=== PATIENT | male | born 1970 | race Hispanic/Latino ===

== ENCOUNTER 2019-01-01 21:11 | Emergency (ER) | payer BC ==
[2019-01-01] MEDS ORDERED: BENADRYL IV ONE (22:26)
[2019-01-01] MEDS ORDERED: REGLAN IV ONE (22:26)
--- NOTE | 2019-01-01 22:27 | Emergency Department Report ---
ED Headache HPI - General Chief Complaint: Abdominal Pain Stated Complaint: NAUSEA AND VOMITING Time Seen by Provider: 01/01/19 22:23 - History of Present Illness Initial Comments: 48-year-old male presents to the emergency room for headache neck pain and vomiting. Patient reports that his head no sleep since as he's been here at the hospital with his to induce labor. Patient does report a past medical history of migraines and cervical spine fusion C4 to C7. Patient reports change of vision. Denies any chest pain shortness of breathing or abdominal pain. Timing/Duration: 24 hours Quality: severe Recent Head Trauma: no recent headache/trauma Associated Symptoms: nausea/vomiting Allergies/Adverse Reactions: Allergies No Known Allergies Allergy (Unverified 01/01/19 22:09) Home Medications: Ambulatory Orders Ketorolac [Toradol] 10 mg PO Q6H PRN #20 tablet 01/02/19 Metoclopramide [Reglan] 10 mg PO TID #15 tab 01/02/19 diphenhydrAMINE [Benadryl CAP] 25 mg PO Q6HR PRN #15 capsule 01/02/19 ED Review of Systems ROS: Stated complaint: NAUSEA AND VOMITING Other details as noted in HPI Comment: All other systems reviewed and negative Constitutional: denies: chills, fever Eyes: vision change ENT: denies: ear pain, throat pain Respiratory: denies: cough, shortness of breath, wheezing Cardiovascular: denies: chest pain, palpitations Endocrine: no symptoms reported Gastrointestinal: nausea, vomiting Genitourinary: denies: urgency, dysuria Musculoskeletal: denies: back pain, joint swelling, arthralgia Skin: denies: rash, lesions Neurological: headache Psychiatric: denies: anxiety, depression Hematological/Lymphatic: denies: easy bleeding, easy bruising ED Past Medical Hx - Past Medical History Previous Medical History?: Yes Hx Hypertension: Yes Hx Headaches / Migraines: Yes Additional medical history: Triple Spine fusion c4-c7 second revision surgery - Surgical History Past Surgical History?: Yes Additional Surgical History: Triple fusion C4-C7 secind revision surgery - Social History Smoking Status: Never Smoker - Medications Home Medications: Home Medications Medication Instructions Recorded Confirmed Last Taken Type Ketorolac [Toradol] 10 mg PO Q6H PRN #20 tablet 01/02/19 Unknown Rx Metoclopramide [Reglan] 10 mg PO TID #15 tab 01/02/19 Unknown Rx diphenhydrAMINE [Benadryl CAP] 25 mg PO Q6HR PRN #15 capsule 01/02/19 Unknown Rx ED Physical Exam - General Limitations: No Limitations ED Course Vital Signs 01/01/19 01/01/19 21:20 22:11 Temperature 97.6 F 97.3 F L Pulse Rate 75 71 Respiratory 18 18 Rate Blood Pressure 133/85 133/85 O2 Sat by Pulse 96 96 Oximetry ED Medical Decision Making - Radiology Data Radiology results: report reviewed Patient: FUAD LECHUGA MR#: [id number] 6 : 1970 Acct:[id number] Age/Sex: 48 / M ADM Date: 01/01/19 Loc: ED Attending Dr: Ordering Physician: KAMILLE TEJEDA Date of Service: 01/01/19 Procedure(s): CT head/brain wo con Accession Number(s): [id number] cc: KAMILLE TEJEDA PROCEDURE: CT HEAD/BRAIN WO CON TECHNIQUE: Computerized tomography of the head was performed without contrast material. CT DOSE LENGTH PRODUCT: 920.5 mGycm HISTORY: worst headache with vomiting COMPARISONS: None . FINDINGS: There is no evidence of an acute intracranial process, intracranial hemorrhage or mass effect. The ventricles are normal size. The visualized portions of the orbits, paranasal and mastoid sinuses are unremarkable. The bony structures are unremarkable. IMPRESSION: 1. No evidence of an acute intracranial process, intracranial hemorrhage or mass effect. If the patient remains symptomatic and if further imaging is required, MRI may be helpful. This document is electronically signed by Nancy Servin MD., January 02 2019 12:00:02 AM ET Transcribed By: ED Dictated By: NANCY SERVIN MD Electronically Authenticated By: NANCY SERVIN MD Signed Date/Time: 01/02/191 DD/ 47 TD/TT: 01/01/192347 Critical care attestation.: If time is entered above; I have spent that time in minutes in the direct care of this critically ill patient, excluding procedure time. ED Disposition Clinical Impression: Migraine, Insomnia, Nausea with vomiting, unspecified Disposition: DC-01 TO HOME OR SELFCARE Is pt being admited?: No Does the pt Need Aspirin: No Condition: Stable Instructions: Acute Headache (ED), Acute Nausea and Vomiting (ED) Additional Instructions: Take medications as prescribed. Follow-up to primary care provider if his symptoms persist or gets worse. Prescriptions: diphenhydrAMINE [Benadryl CAP] 25 mg PO Q6HR PRN #15 capsule PRN Reason: Rash Metoclopramide [Reglan] 10 mg PO TID #15 tab Ketorolac [Toradol] 10 mg PO Q6H PRN #20 tablet PRN Reason: Pain
--- NOTE | 2019-01-02 00:02 | Cat Scan Report ---
PROCEDURE: CT HEAD/BRAIN WO CON TECHNIQUE: Computerized tomography of the head was performed without contrast material. CT DOSE LENGTH PRODUCT: 920.5 mGycm HISTORY: worst headache with vomiting COMPARISONS: None . FINDINGS: There is no evidence of an acute intracranial process, intracranial hemorrhage or mass effect. The ventricles are normal size. The visualized portions of the orbits, paranasal and mastoid sinuses are unremarkable. The bony structures are unremarkable. IMPRESSION: 1. No evidence of an acute intracranial process, intracranial hemorrhage or mass effect. If the patient remains symptomatic and if further imaging is required, MRI may be helpful. This document is electronically signed by Nancy Servin MD., January 02 2019 12:00:02 AM ET
[2019-01-02] MEDS ORDERED: TORADOL IV ONE (00:08)
[2019-01-02 01:20] VITALS: BP 135/78
== END 2019-01-02 01:19 | disposition home or self-care (01) ==
LOC: ED 21:11
DX: G43.909 Migraine, unspecified, not intractable, without status migrainosus (principal); G47.00 Insomnia, unspecified; I10 Essential (primary) hypertension; Z79.899 Other long term (current) drug therapy
CPT/HCPCS: 70450; 96374; 96375; 99284; J1200; J1885; J2765